=== PATIENT | female | born 1950 | race Caucasian/White ===

== ENCOUNTER → 2023-01-22 | Outpatient (CLI) | payer MEDICARE, OTHER ==
--- NOTE | 2023-01-22 12:23 | DEXA Report ---
PROCEDURE: Dexa Spine and/or Hip INDICATIONS: POST MENOPAUSAL TECHNIQUE: Dual energy x-ray absorptiometry (DXA) was performed on a [employer] System. Regions measur ed are the AP Spine, femoral neck, and if needed forearm. COMPARISON: None. FINDINGS: Lumbar Spine: Bone Mineral Density 1.382 g/cm/cm,T score 1.5, normal Left Femoral Neck: Bone Mineral Density 0.975 g/cm/cm, T score -0.5, normal Left Hip: Bone Mineral Density 1.066 g/cm/cm,T score 0.5, normal (T score greater or equal to -1.0: NORMAL) (T score from -1.1 to -2.4: OSTEOPENIA) (T score less than or equal to -2.5 to: OSTEOPOROSIS) Impression: Normal bone mineral density. Patients with diagnosis of osteoporosis or osteopenia should have regular bone mineral density assess ment. For those eligible for Medicare, routine testing is allowed once every 2 years. Testing frequ ency can be increased for patients who have rapidly progressing disease or for those who are receivin g medical therapy to restore bone mass. Reviewed by: Chase Wright MD on 01/22/2023 12:21 PM PDT Approved by: Chase Wright MD on 01/22/2023 12:21 PM PDT Station ID: [id number]
== END ==
LOC: DI 09:49 → EDSTATUS 10:00
PROVIDERS: ATTEND Internal Medicine
DX: C50.919 Malignant neoplasm of unspecified site of unspecified female breast (principal); Z78.0 Asymptomatic menopausal state

== ENCOUNTER 2023-03-11 08:01 | Day surgery (SDC) | payer MEDICARE, OTHER ==
[2023-03-11] MEDS ORDERED: ACETAMINOPHEN 500 MG TABLET PO ONE (08:03)
[2023-03-11] MEDS ORDERED: CELECOXIB 100 MG CAPSULE PO ONE (08:03)
[2023-03-11] MEDS ORDERED: ceFAZolin 2 GM VIAL ONE (08:04)
[2023-03-11] MEDS ORDERED: LIDOCAINE-MPF 1% 5 ML VIAL ONE (08:30)
[2023-03-11] MEDS ORDERED: LIDOCAINE 1%-EPI 1:100000 20 ML MDV ONE ×3 (08:30→12:16)
[2023-03-11] MEDS ORDERED: LACTATED RINGERS 1,000 ML IV ONE (08:33)
[2023-03-11] MEDS ORDERED: BUPIVACAINE 0.25% PF 30 ML VIAL ONE (10:30)
[2023-03-11] MEDS ORDERED: ePHEDrine 50 MG/ML VIAL IVP PRN (10:48)
[2023-03-11] MEDS ORDERED: HYDROmorphone 0.5 MG/0.5 ML SYRINGE IVP PRN ×2 (10:48→13:36)
[2023-03-11] MEDS ORDERED: NALOXONE 0.4 MG/ML VIAL IVP PRN (10:48)
[2023-03-11] MEDS ORDERED: MORPHINE 2 MG/ML CARPUJECT IVP PRN (10:48)
[2023-03-11] MEDS ORDERED: fentaNYL 100 MCG/2 ML VIAL IVP PRN (10:48)
[2023-03-11] MEDS ORDERED: ONDANSETRON 4 MG/2 ML VIAL IVP PRN (10:48)
[2023-03-11] MEDS ORDERED: ATROPINE ABBOJECT 1 MG/10 ML SYRINGE IVP PRN (10:48)
[2023-03-11] MEDS ORDERED: METOCLOPRAMIDE 10 MG/2 ML VIAL IVP PRN (10:48)
--- NOTE | 2023-03-11 10:48 | ANESTHESIA ---
Pre-Anesthesia VS, & Labs - Diagnosis DCIS - Procedure Right breast lumpectomy Vital Signs: Temp Pulse Resp BP Pulse Ox O2 Flow Rate 36.4 C L 83 18 120/74 100 03/11/23 08:25 03/11/23 08:25 03/11/23 08:25 03/11/23 08:25 03/11/23 08:25 Height: 5 ft 3 in Weight (kg): 86 kg Body Mass Index: 33.5 BMI Classification: Obese - NPO >8 hours - Is Patient ?: No Home Medications and Allergies Home Medications: Ambulatory Orders Aspirin [Aspirin EC] 81 mg PO DAILY 03/05/23 diphenhydrAMINE [Benadryl] 50 mg PO HS 03/05/23 Anastrozole 1 mg PO DAILY 05/16/22 Calcium Carbonate/Vitamin D3 [Calcium 250-Vit D3 125 Tablet] 1 each PO DAILY 05/16/22 Aspirin [Aspirin EC] 81 mg PO DAILY 03/05/23 diphenhydrAMINE [Benadryl] 50 mg PO HS 03/05/23 Allergies/Adverse Reactions: Allergies Allergy/AdvReac Type Severity Reaction Status Date / Time adhesive tape AdvReac Rash Verified 05/16/22 16:13 Anes History & Medical History - Anesthetic History Anesthesia Complications: reports: No previous complications Family history of Anesthesia Complications: Denies Family history of Malignant Hyperthermia: Denies - Medical History Cardiovascular: reports: None Pulmonary: reports: None Gastrointestinal: reports: None Urinary: reports: None Musculoskeletal: reports: Osteoarthritis Endocrine/Autoimmune: reports: None Skin: reports: None Smoking Status: Current every day smoker (smokes cannabis) Psychosocial: reports: Alcohol (3-4x/week), Cannabis (daily) - Surgical History General: reports: Colonoscopy, Other Eyes Ears Nose Throat (EENT): reports: Cataracts, Other Gynecologic: reports: Hysterectomy Orthopedic: reports: Knee replacement Exam General: Alert, Oriented x3, Cooperative Dental: WNL Mouth Opening: Greater than 4 Fingerbreadths Neck Mobility: Normal Mallampati classification: I Thyromental Distance: 4-6 cm Respiratory: Lungs clear Cardiovascular: Regular rate Plan Anesthesia Type: General Consent for Procedure(s) Verified and Reviewed: Yes Code Status: Attempt Resuscitation ASA classification: 3-Severe systemic disease Is this case an emergency?: No
[2023-03-11] MEDS ORDERED: MIDAZOLAM 2 MG/2 ML VIAL ONE (10:52)
[2023-03-11] MEDS ORDERED: fentaNYL 100 MCG/2 ML VIAL ONE (10:52)
[2023-03-11] MEDS ORDERED: LIDOCAINE-PF 2% 10 ML AMP SUBQ ONE (10:53)
[2023-03-11] MEDS ORDERED: PROPOFOL 200 MG/20 ML VIAL IVP ONE (10:53)
[2023-03-11] MEDS ORDERED: LACTATED RINGERS 1,000 ML IV SCH (11:00)
[2023-03-11] MEDS ORDERED: LIDOCAINE-MPF 1% 5 ML VIAL TD ONE (11:42)
[2023-03-11] MEDS ORDERED: LIDOCAINE 1%-EPI 1:100000 20 ML MDV SUBQ ONE (11:44)
[2023-03-11] MEDS ORDERED: ONDANSETRON 4 MG/2 ML VIAL ONE (12:39)
[2023-03-11] MEDS ORDERED: DEXAMETHASONE 4 MG/ML VIAL ONE (12:39)
[2023-03-11] MEDS ORDERED: LIDOCAINE MPF 2%-EPI 1:200000 20 ML VIAL SUBQ ONE (12:50)
[2023-03-11] MEDS ORDERED: BUPIVACAINE 0.5% PF 30 ML VIAL SUBQ ONE (12:50)
[2023-03-11] MEDS ORDERED: LACTATED RINGERS 400 ML IV ONE (13:29)
[2023-03-11] MEDS ORDERED: ACETAMINOPHEN 500 MG TABLET PO PRN (13:36)
[2023-03-11] MEDS ORDERED: oxyCODONE 5 MG TABLET PO PRN (13:36)
--- NOTE | 2023-03-11 13:41 | OPERATIVE REPORT ---
Operative Report - General Procedure Date: 03/11/23 Planned Procedure: Right lumpectomy, wire localized Pre-Op Diagnosis: DCIS, right breast Procedure Performed: Right lumpectomy, wire localized Post Op Diagnosis: DCIS, right breast - Procedure Note Primary Surgeon: Dr. Guerda Oviedo Anesthesia Provider: Kenn Ryan CRNA Anesthesia Technique: General LMA, Local Pathology: 1. right lumpectomy, clip present on specimen mammogram (labeled short superior, long lateral, double anterior) 2. re excision of medial margin (labeled short superior, long new medial margin, double white anterior) Estimated Blood Loss (mL): 5 Indications: The patient had an abnormal finding on her mammogram and subsequent biopsy revealed DCIS. 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 The patient was seen in the clinic and evaluated. We discussed the risks, benefits, and alternatives of lumpectomy. Risks include but are not limited to bleeding, infection, damage to surrounding structures, numbness, and the possible need for further surgeries or procedures. We also discussed the intraoperative and postoperative plan and the possible need for further excision for positive margins or close margins. The patient voiced understanding, her questions were answered, and she wished to proceed. A consent was signed by the patient prior to surgery. Findings: 1. right lumpectomy, clip present on specimen mammogram (labeled short superior, long lateral, double anterior) 2. re excision of medial margin (labeled short superior, long new medial margin, double white anterior) Complications: None - Other Other Information/Narrative: The patient was taken to the operating room and placed in the supine position. Preop antibiotics were given. ERAS medications were given. The patient was prepped and draped in the usual sterile fashion. A preop surgical timeout was performed. Attention was turned to the patient's right breast. An incision was made which incorporated the wire, following the patient's skin folds, at the 11 o'clock position, N + 6. Skin flaps were raised superiorly and inferiorly to the incision. The dissection was carried down to the thick part of the wire using electrocautery. At this point, serrated scissors were used to perform a lumpectomy staying approximately 1 cm away from the wire in all dimensions. The lumpectomy specimen was removed and oriented with suture on the back table. The specimen was sent to mammography and the biopsy clip was confirmed to be within the specimen. The medial margin demonstrated some thickening, and I elected to resect an additional piece of tissue in this location. This was similarly oriented on the back table and sent for final pathology. The edges of the lumpectomy cavity were inspected and there were no palpable abnormalities. Hemostasis was confirmed. The lumpectomy cavity was irrigated with warm normal saline. Clips were placed in the superior, inferior, medial, lateral, anterior, and posterior margins of the lumpectomy cavity. The deep dermal tissues were closed with 3-0 Vicryl in an interrupted fashion. The skin was closed with 4-0 Monocryl in a running subcuticular fashion. The patient tolerated the procedure well. There were no complications.
[2023-03-11 14:37] VITALS: BP 127/79
--- NOTE | 2023-03-11 14:43 | ANESTHESIA POST OP EVALUATION ---
Anesthesia Post Eval - Post Anesthesia Eval Vitals: Last Vital Signs Temp 36.1 C L 03/11/23 14:37 Pulse 78 03/11/23 14:37 Resp 18 03/11/23 14:37 BP 127/79 03/11/23 14:37 Pulse Ox 96 03/11/23 14:37 O2 Flow Rate CV Function Including HR & BP: Stable Pain Control: Satisfactory Nausea & Vomiting: Negative Mental Status: Baseline Respiratory Status: Airway Patent Hydration Status: Satisfactory Anesthesia Complications: None
--- NOTE | 2023-03-12 12:54 | Mammography Report ---
SPECIMEN: 03/11/2023 CLINICAL: Right breast specimen. Correlation is made to exams dated: 03/11/2023 localization - [facility], 01/22/2023 stereotactic biopsy - [facility], 01/11/2023 mammogram, 11/29/2022 mammogram, 11/22/2021 mamm ogram - [facility], and 08/09/2020 mammogram - outside. The specimen contains the clip at the edge of the specimen and the wire with distal hook in the cente r. IMPRESSION: SPECIMEN The specimen contains the clip at the edge of the specimen and the wire with distal hook in the cent er. This exam was interpreted at Station ID: [id number]. Efraín Barrera M.D. lc/:03/11/2023 13:19:46 BI-RADS CATEGORY: () - Unspecified - other recall n/a LATERALITY: (B)
--- NOTE | 2023-03-12 12:54 | Mammography Report ---
NEEDLE LOCALIZATION- POST-PROCEDURE IMAGING FOR MARKER PLACEMENT: 03/11/2023 CLINICAL: Pre-op right wire localization with mammography. Correlation is made to exams dated: 01/22/2023 stereotactic biopsy - [facility], 01/11/2023 mammogram, 11/29/2022 mammogram, 11/22/2021 mammogram - [facility], 08/09/2020 mammogram, and 2019 mammogram - outside. Successful wire localization. The distal tip with hook lies just inferior and posterior to the clip a t 12:00. IMPRESSION: NEEDLE LOCALIZATION Successful wire localization. The distal tip with hook lies just inferior and posterior to the clip at 12:00. This exam was interpreted at Station ID: [id number]. Efraín Barrera M.D. lc/:03/11/2023 13:18:48 BI-RADS CATEGORY: () - Unspecified - other recall n/a LATERALITY: (B)
== END 2023-03-11 08:02 | disposition home or self-care (01) ==
LOC: SDS 08:01
PROVIDERS: ATTEND Surgery
PROC: 0HBT0ZZ Excision of Right Breast, Open Approach (ICD-10-PCS; principal; 2023-03-11 11:45)
DX: D05.11 Intraductal carcinoma in situ of right breast (principal); E66.9 Obesity, unspecified; Z68.33 Body mass index [BMI] 33.0-33.9, adult
CPT/HCPCS: 19281; 19301; 76098; A9270; J7120

== ENCOUNTER 2023-03-28 10:26 | Day surgery (SDC) | payer MEDICARE, OTHER ==
[~2023-03-28 10:26] MED LIST: CYCLOPENTOLATE 1% OPHTH DROPS 2 ML ONE; KETOROLAC 0.45% OPHTH DROPS ONE; PHENYLEPHRINE 2.5% OPHTH 2 ML DROPS ONE; PROPARACAINE 0.5% OPHTH DROPS 15 ML ONE
[2023-03-28] MEDS ORDERED: LIDOCAINE 1%-EPI 1:100000 20 ML MDV ONE (10:37)
[2023-03-28] MEDS ORDERED: BUPIVACAINE 0.25% PF 30 ML VIAL ONE (10:37)
[2023-03-28] MEDS ORDERED: PROPOFOL 500 MG/50 ML 500 MG/50 ML VIAL ONE (10:46)
[2023-03-28] MEDS ORDERED: LIDOCAINE-PF 2% 10 ML AMP SUBQ ONE (10:48)
[2023-03-28] MEDS ORDERED: ACETAMINOPHEN 500 MG TABLET PO ONE (11:00)
[2023-03-28] MEDS ORDERED: ceFAZolin 2 GM VIAL ONE (11:00)
[2023-03-28] MEDS ORDERED: LACTATED RINGERS 1,000 ML IV ONE ×2 (11:01→12:49)
[2023-03-28] MEDS ORDERED: fentaNYL 100 MCG/2 ML VIAL ONE ×2 (11:11→13:15)
--- NOTE | 2023-03-28 11:11 | ANESTHESIA ---
Pre-Anesthesia VS, & Labs - Diagnosis right breast dcis - Procedure right breast reexcision Vital Signs: Temp Pulse Resp BP Pulse Ox O2 Flow Rate 37.0 C 75 18 137/68 H 100 0 03/28/23 10:49 03/28/23 10:49 03/28/23 10:49 03/28/23 10:49 03/28/23 10:49 03/28/23 10:49 Height: 5 ft 3 in Weight (kg): 84 kg Body Mass Index: 32.8 BMI Classification: Obese - NPO >8 hours - Is Patient ?: No - Lab Results Lab results reviewed: Yes Home Medications and Allergies Home Medications: Ambulatory Orders Ibuprofen [Advil] 400 mg PO DAILY 03/27/23 Anastrozole 1 mg PO DAILY 05/16/22 Calcium Carbonate/Vitamin D3 [Calcium 250-Vit D3 125 Tablet] 1 each PO BID 05/16/22 Aspirin [Aspirin EC] 81 mg PO DAILY 03/05/23 diphenhydrAMINE [Benadryl] 50 mg PO HS 03/05/23 Ibuprofen [Advil] 400 mg PO DAILY 03/27/23 Allergies/Adverse Reactions: Allergies Allergy/AdvReac Type Severity Reaction Status Date / Time adhesive tape AdvReac Rash Verified 03/28/23 11:00 Anes History & Medical History - Anesthetic History Anesthesia Complications: reports: Post-Operative Nausea/Vomiting Family history of Anesthesia Complications: Denies Family history of Malignant Hyperthermia: Denies - Medical History Cardiovascular: reports: None Pulmonary: reports: None Gastrointestinal: reports: None Urinary: reports: None Neuro: reports: None Musculoskeletal: reports: Osteoarthritis Endocrine/Autoimmune: reports: None Skin: reports: None Smoking Status: Current every day smoker (smokes cannabis) Psychosocial: reports: Substance abuse, Cannabis - Surgical History General: reports: Colonoscopy, Other Eyes Ears Nose Throat (EENT): reports: Cataracts, Other Gynecologic: reports: Hysterectomy Orthopedic: reports: Knee replacement Exam General: Alert, Oriented x3, Cooperative Dental: WNL Mouth Openin Fingerbreadth Mallampati classification: II Thyromental Distance: 4-6 cm Respiratory: Lungs clear Cardiovascular: Regular rate Plan Anesthesia Type: General Consent for Procedure(s) Verified and Reviewed: Yes Code Status: Attempt Resuscitation ASA classification: 2-Mild systemic disease Is this case an emergency?: No
[2023-03-28] MEDS ORDERED: ePHEDrine 50 MG/ML VIAL IVP PRN (11:13)
[2023-03-28] MEDS ORDERED: NALOXONE 0.4 MG/ML VIAL IVP PRN (11:13)
[2023-03-28] MEDS ORDERED: ATROPINE ABBOJECT 1 MG/10 ML SYRINGE IVP PRN (11:13)
[2023-03-28] MEDS ORDERED: ONDANSETRON 4 MG/2 ML VIAL IVP PRN ×2 (11:13→12:50)
[2023-03-28] MEDS ORDERED: HYDROmorphone 0.5 MG/0.5 ML SYRINGE IVP PRN ×2 (11:13→12:50)
[2023-03-28] MEDS ORDERED: DEXAMETHASONE 4 MG/ML VIAL ONE ×2 (11:47)
[2023-03-28] MEDS ORDERED: ONDANSETRON 4 MG/2 ML VIAL ONE (11:47)
[2023-03-28] MEDS ORDERED: LIDOCAINE MPF 2%-EPI 1:200000 20 ML VIAL SUBQ ONE ×2 (11:56)
[2023-03-28] MEDS ORDERED: BUPIVACAINE 0.5% PF 30 ML VIAL SUBQ ONE ×2 (11:57)
[2023-03-28] MEDS ORDERED: LACTATED RINGERS 1,000 ML IV SCH (12:00)
[2023-03-28] MEDS ORDERED: IBUPROFEN 600 MG TABLET PO PRN (12:50)
[2023-03-28] MEDS ORDERED: ACETAMINOPHEN 325 MG TABLET PO PRN (12:50)
--- NOTE | 2023-03-28 12:55 | OPERATIVE REPORT ---
Operative Report - General Procedure Date: 03/28/23 Planned Procedure: re excision of positive margin Pre-Op Diagnosis: DCIS Procedure Performed: re excision of positive margin Post Op Diagnosis: DCIS - Procedure Note Primary Surgeon: Dr. Guerda Oviedo Anesthesia Provider: Curry Yeung CRNA Anesthesia Technique: General LMA, Local Pathology: 1. re excision inferior margin 2. Inferior medial margin Estimated Blood Loss (mL): 10 Indications: Patient with biopsy proven DCIS in R breast, s/p prior lumpectomy with 2mm positive inferior margin. Patient seen in clinic where we discussed the r/b/a of returning to the OR for re excision of positive margin. Risks include: bleeding, infection, damage to surrounding structures, numbness, and a persistently positive margin. Patient voiced understanding, her questions were answered, and she wished to proceed with re excision. Consent signed in clinic. Complications: none - Other Other Information/Narrative: The patient was taken to the operating room and placed in the supine position. Preop antibiotics were given. ERAS medications were given. The patient was prepped and draped in the usual sterile fashion. A preop surgical timeout was performed. Attention was turned to the patient's right breast. The previous incision was reopened. The lumpectomy cavity was opened and explored. At the inferior margin of the previous lumpectomy, a reexcision margin was taken. This was removed in 2 specimens. Both were labeled on the back table short superior, long lateral, double anterior. The first specimen was labeled inferior margin. The second specimen was labeled inferior lateral margin. The specimens were sent to pathology.The edges of the lumpectomy cavity were inspected and there were no palpable abnormalities. Hemostasis was confirmed. The lumpectomy cavity was irrigated with warm normal saline. A Hemoclip was placed in the new inferior margin of the lumpectomy cavity. The deep dermal tissues were closed with 3-0 Vicryl in an interrupted fashion. The skin was closed with 4-0 Monocryl in a running subcuticular fashion. The patient tolerated the procedure well. There were no complications.
[2023-03-28] MEDS: fentaNYL 100 MCG/2 ML VIAL IVP PRN ×2 (13:11→13:16)
[2023-03-28] MEDS ORDERED: IBUPROFEN 600 MG TABLET PO ONE (13:40)
[2023-03-28 14:41] VITALS: BP 124/64
--- NOTE | 2023-03-28 15:50 | ANESTHESIA POST OP EVALUATION ---
Anesthesia Post Eval - Post Anesthesia Eval Vitals: Last Vital Signs Temp 36.6 C 03/28/23 14:40 Pulse 88 03/28/23 14:40 Resp 16 03/28/23 14:40 BP 124/64 03/28/23 14:40 Pulse Ox 95 03/28/23 14:40 O2 Flow Rate 0 03/28/23 10:49 CV Function Including HR & BP: Stable Pain Control: Satisfactory Nausea & Vomiting: Negative Mental Status: Baseline Respiratory Status: Airway Patent Hydration Status: Satisfactory Anesthesia Complications: None
== END 2023-03-28 10:27 | disposition home or self-care (01) ==
LOC: SDS 10:26
PROVIDERS: ATTEND Surgery
PROC: 0HBT0ZZ Excision of Right Breast, Open Approach (ICD-10-PCS; principal; 2023-03-28 11:15)
DX: D05.11 Intraductal carcinoma in situ of right breast (principal); E66.9 Obesity, unspecified; Z68.32 Body mass index [BMI] 32.0-32.9, adult

== ENCOUNTER 2023-12-16 10:39 | Outpatient (CLI) | payer MEDICARE, OTHER ==
--- NOTE | 2023-12-17 09:01 | Mammography Report ---
BILATERAL DIGITAL DIAGNOSTIC MAMMOGRAM 3D/2D: 12/16/2023 CLINICAL: Oncology follow up of right breast cancer. Due for bilateral. Comparison is made to exams dated: 03/11/2023 localization - [facility], 01/22/2023 s tereotactic biopsy - [facility], 01/11/2023 mammogram, 11/29/2022 mammogram, 11/22/2021 mammo [facility], and 08/09/2020 mammogram - outside. Both breasts are heterogeneously dense, which may obscure small masses (category c / 51-75% glandular tissue). There are benign post operative findings in both breasts. No significant masses, calcifications, or other findings are seen in either breast. There has been no significant interval change. IMPRESSION: BENIGN There is no mammographic evidence of malignancy. A 1 year screening mammogram is recommended. This exam was interpreted at Station ID: [id number]. NOTE: For mammograms, a report in lay terms will be sent to the patient. Approximately 15% of breast malignancies will not be visualized mammographically. In the management of a palpable breast mass, a negative mammogram must not discourage biopsy of a clinically suspicious lesion. Electronically Signed By: Kimmy avitia/sheela:12/16/2023 11:25:17 ACR BI-RADS Category 2: Benign Finding(s) 3342F PARENCHYMAL PATTERN: (D) - The breast(s) demonstrate(s) heterogeneously dense fibroglandular catalina grimes. BI-RADS CATEGORY: (2) - 2 RECOMMENDATION: (ANNUAL) - Recommend routine annual screening mammography. [id number] 1 year screening LATERALITY: (B)
== END 2023-12-16 10:40 | disposition home or self-care (01) ==
LOC: DI 10:39
PROVIDERS: ATTEND Internal Medicine
DX: C50.911 Malignant neoplasm of unspecified site of right female breast (principal)

== ENCOUNTER 2024-05-25 18:56 | Outpatient (CLI) | payer MEDICARE, OTHER ==
[2024-05-25 19:13] LABS: BASOPHILS % (AUTO) 0.4 %; HCT - HEMATOCRIT 43.1 % (37.0-47.0); HGB - HEMOGLOBIN 13.6 g/dL (12.0-16.0); LYMPHOCYTES # (AUTO) 0.5 10^3/uL (1.5-3.5); LYMPHOCYTES % (AUTO) 6.5 %; MEAN CORPUSCULAR HGB CONC 31.6 g/dL (32.0-36.0); MEAN CORPUSCULAR VOLUME 88.9 fL (81.0-99.0); MEAN PLATELET VOLUME 11.2 fL (7.9-10.8); MONOCYTES # (AUTO) 0.7 10^3/uL (0.0-1.0); MONOCYTES % (AUTO) 8.3 %; NEUTROPHILS % (AUTO) 83.8 %; PLT - PLATELET COUNT 146 10^3/uL (130-450); RED BLOOD COUNT 4.85 10^6/uL (4.20-5.40); WHITE BLOOD COUNT 8.3 x10^3/uL (4.8-10.8)
[2024-05-25 19:28] LABS: CALCIUM 9.4 mg/dL (8.5-10.3); CREATININE 0.9 mg/dL (0.6-1.3); POTASSIUM 4.3 mmol/L (3.5-4.5)
== END 2024-05-25 18:57 | disposition home or self-care (01) ==
LOC: LAB 18:56
PROVIDERS: ATTEND Physician Assistant Medical
DX: Z20.822 Contact with and (suspected) exposure to COVID-19 (principal)
CPT/HCPCS: 36415; 80048; 85025